=== PATIENT | female | born 1940 | race Caucasian/White ===

== ENCOUNTER 2020-12-25 13:28 | Outpatient (CLI) | payer MEDICARE | END 2020-12-25 13:29 | disposition home or self-care (01) | LOC: BICMRI 13:28 | PROVIDERS: ATTEND Family Medicine | DX: M47.26 Other spondylosis with radiculopathy, lumbar region (principal); M48.061 Spinal stenosis, lumbar region without neurogenic claudication | CPT/HCPCS: 72100; 72148 ==

== ENCOUNTER 2021-12-02 16:33 | Emergency (ER) | payer MEDICARE ==
[2021-12-02 19:39] LABS: #Eosinphils 0.1 thou/uL (0.0-0.7); #Lymphocytes 1.7 thou/uL (1.20-3.40); #Monocytes 0.5 thou/uL (0.11-0.59); #Neutrophils 3.9 thou/uL (1.40-6.50); %Basophils 0.7 % (0.0-1.0); %Eosinophils 1.1 % (0.0-10.0); %Lymphocytes 27.5 % (21.0-51.0); %Monocytes 8.1 % (0.0-10.0); %Neutrophils 62.6 % (42.0-75.0); Mean Corpuscular HGB CONC 32.8 g/dL (32.0-36.0); Mean Corpuscular Hemoglobin 29.6 pg (27.0-31.0); Mean Corpuscular Volume 90.2 fL (78.0-98.0); Mean Platelet Volume 7.9 fL (7.4-10.4); Platelet Count 189 thou/uL (130-400); RBC Distribution Width 12.1 % (11.5-14.5); Red Blood Cell (RBC) Count 4.05 mill/uL (4.20-5.40); White Blood Cell (WBC) Count 6.3 thou/uL (4.8-10.8)
[2021-12-02 20:03] LABS: ALT (SGPT) 17 U/L (8-55); AST (SGOT) 18 U/L (5-34); Albumin 4.2 g/dL (3.4-4.8); Alkaline Phosphatase 58 U/L (40-110); Anion Gap 11 mmol/L (10-20); BUN (Urea Nitrogen) 13 mg/dL (9.8-20.1); Bilirubin, Total 0.6 mg/dL (0.2-1.2); Calc. Creatinine Clearance 0 mL/min (70-130); Calcium 9.5 mg/dL (7.8-10.44); Carbon Dioxide 27 mmol/L (23-31); Chloride 105 mmol/L (98-107); Estimated GFR 72; Globulin 2.5 g/dL (2.4-3.5); Glucose 131 mg/dL (83-110); Potassium 4.3 mmol/L (3.5-5.1); Protein, Total 6.7 g/dL (5.8-8.1); Sodium 139 mmol/L (136-145)
== END 2021-12-02 21:50 | disposition home or self-care (01) ==
LOC: ERS 16:33
DX: R60.0 Localized edema (principal); I10 Essential (primary) hypertension; E78.5 Hyperlipidemia, unspecified; Z79.899 Other long term (current) drug therapy
CPT/HCPCS: 36415; 80053; 83880; 84484; 85025; 85379; 93970

== ENCOUNTER 2022-01-30 10:58 | Outpatient (CLI) | payer MEDICARE ==
[2022-01-30 13:16] LABS: Hemoglobin 12.8 g/dL (12.0-15.5); Mean Corpuscular HGB CONC 33.2 g/dL (32.0-36.0); Mean Corpuscular Hemoglobin 29.4 pg (27.0-33.0); Mean Corpuscular Volume 88.5 fl (81.6-98.3); Mean Platelet Volume 11.1 fl (7.4-10.4); Platelet Count 238 10x3/uL (150-450); RBC Distribution Width 13.2 % (11.5-14.5); Red Blood Cell (RBC) Count 4.35 10x6/uL (3.90-5.03); White Blood Cell (WBC) Count 6.9 10x3/uL (3.5-10.5)
[2022-01-30 13:44] LABS: INR-International Normal Ratio 0.9; PTT 28.6 sec (22.0-33.0)
== END 2022-01-30 10:59 | disposition home or self-care (01) ==
LOC: LABBT 10:58
PROVIDERS: ATTEND Neurological Surgery
DX: Z01.818 Encounter for other preprocedural examination (principal); M48.062 Spinal stenosis, lumbar region with neurogenic claudication
CPT/HCPCS: 85027; 85610; 85730; 93005; 93010

== ENCOUNTER 2022-02-04 05:45 | Day surgery (SDC) | payer MEDICARE ==
[2022-02-03 12:35] VITALS: BMI 28.3
[2022-02-04] MEDS ORDERED: Neomycin-Polymyxin 1 ML AMP ONE (06:10)
[2022-02-04] MEDS ORDERED: Bupivacaine HCl 0.5%/Epinephrine 1:200,000/PF 30 ml Vial ONE (06:10)
[2022-02-04] MEDS ORDERED: Thrombin 5000 UNITS/5 ML VIAL ONE ×2 (06:10→08:00)
[2022-02-04] MEDS ORDERED: Dexmedetomidine 200 MCG/2 ML VIAL ONE (06:26)
[2022-02-04] MEDS ORDERED: fentaNYL PF 100 MCG/2 ML SYRINGE ONE (06:26)
[2022-02-04] MEDS ORDERED: Sodium Chloride 0.9% 100 ML ONE ×2 (06:48→14:06)
[2022-02-04] MEDS ORDERED: CEFAZOLIN 2 GM VIAL ONE ×2 (06:48→14:06)
[2022-02-04] MEDS ORDERED: Ketorolac Tromethamine 30 MG/ML VIAL ONE (07:12)
[2022-02-04] MEDS ORDERED: Glycopyrrolate 0.2 MG/ML 5 ML SYRINGE ONE (07:12)
[2022-02-04] MEDS ORDERED: NEOSTIGMINE 3 MG/3 ML SYR 3 MG/3 ML SYRINGE ONE (07:12)
[2022-02-04] MEDS ORDERED: Dexamethasone 20 MG/5 ML VIAL ONE (07:12)
[2022-02-04] MEDS ORDERED: PROPOFOL 200 MG/20 ML VIAL ONE (07:12)
[2022-02-04] MEDS ORDERED: Rocuronium Bromide 10 MG/ML (10ML VIAL) ONE (07:12)
[2022-02-04] MEDS ORDERED: ePHEDrine 50 MG/ML VIAL ONE (07:12)
[2022-02-04] MEDS ORDERED: Ondansetron PF 4 MG/2 ML Vial ONE (07:12)
[2022-02-04] MEDS ORDERED: ePHEDrine Sulfate 50 MG/10 ML VIAL ONE (09:44)
[2022-02-04] MEDS ORDERED: Promethazine HCl 25 MG/ML VIAL IVPB PRN (10:41)
[2022-02-04] MEDS ORDERED: Ondansetron HCl/PF 4 MG/2 ML Vial IVP PRN (10:41)
[2022-02-04] MEDS ORDERED: Promethazine HCl 25 MG/ML VIAL IM PRN ×2 (10:41→11:15)
[2022-02-04] MEDS ORDERED: Morphine 4 MG/ML VIAL SLOW IVP PRN ×2 (11:05→11:15)
[2022-02-04] MEDS ORDERED: Promethazine HCl 25 MG/ML VIAL ONE ×2 (11:10→14:48)
[2022-02-04] MEDS ORDERED: Scopolamine 1.5 mg/72 hour Patch TD PRN (11:15)
[2022-02-04] MEDS ORDERED: Acetaminophen 325 MG TAB PO PRN (11:15)
[2022-02-04] MEDS ORDERED: Sodium Chloride 0.9% 1,000 ML IV SCH (11:15)
[2022-02-04] MEDS ORDERED: Cyclobenzaprine 10 MG TAB PO PRN (11:15)
[2022-02-04] MEDS ORDERED: Ondansetron PF 4 MG/2 ML Vial IM PRN (11:15)
[2022-02-04] MEDS ORDERED: Acetaminophen 650 MG Suppository PR PRN (11:15)
[2022-02-04] MEDS ORDERED: Promethazine 25 MG TAB PO PRN (11:15)
[2022-02-04] MEDS ORDERED: Fleet Enema 133 ML BOT PR PRN (11:15)
[2022-02-04] MEDS ORDERED: Promethazine HCl 12.5 MG SUPP PR PRN (11:15)
[2022-02-04] MEDS ORDERED: Bisacodyl 10 MG SUPP PR PRN (11:15)
[2022-02-04] MEDS ORDERED: HYDROcodone/Acetaminophen 7.5/325 mg Tablet PO PRN ×2 (11:15)
[2022-02-04] MEDS ORDERED: Morphine 4 MG/ML VIAL ONE (11:49)
[2022-02-04] MEDS ORDERED: HYDROcodone/Acetaminophen 5/325 mg Tablet ONE (14:19)
[2022-02-04] MEDS ORDERED: CEFAZOLIN 2 GM in Sodium Chloride 0.9% 100 ML IVPB SCH (15:00)
== END 2022-02-04 15:16 | disposition home or self-care (01) ==
LOC: SDC 05:45
PROVIDERS: ATTEND Neurological Surgery
PROC: 01NB0ZZ Release Lumbar Nerve, Open Approach (ICD-10-PCS; principal; 2022-02-04)
DX: M48.062 Spinal stenosis, lumbar region with neurogenic claudication (principal); I10 Essential (primary) hypertension; E78.5 Hyperlipidemia, unspecified; Z79.899 Other long term (current) drug therapy
CPT/HCPCS: J1100; J1885; J2270; J2405; J2550; J2704; J3370; J3490

== ENCOUNTER 2022-02-06 16:36 | Inpatient (IN) | payer MEDICARE ==
[2022-02-06 17:29] LABS: #Lymphocytes 1.3 thou/uL (1.20-3.40); #Monocytes 0.9 thou/uL (0.11-0.59); #Neutrophils 7.7 thou/uL (1.40-6.50); %Basophils 0.1 % (0.0-1.0); %Eosinophils 0.5 % (0.0-10.0); %Lymphocytes 13.2 % (21.0-51.0); %Monocytes 9.4 % (0.0-10.0); %Neutrophils 76.8 % (42.0-75.0); Hemoglobin 8.7 g/dL (12.0-16.0); Mean Corpuscular HGB CONC 32.9 g/dL (32.0-36.0); Mean Corpuscular Hemoglobin 30.5 pg (27.0-31.0); Mean Corpuscular Volume 92.6 fl (78.0-98.0); Mean Platelet Volume 8.5 fL (7.4-10.4); Platelet Count 156 10x3/uL (130-400); RBC Distribution Width 12.1 % (11.5-14.5); Red Blood Cell (RBC) Count 2.85 mill/uL (4.20-5.40)
[2022-02-06 17:49] LABS: ALT (SGPT) 15 U/L (8-55); AST (SGOT) 23 U/L (5-34); Albumin 3.6 g/dL (3.4-4.8); Alkaline Phosphatase 53 U/L (40-110); Anion Gap 12 mmol/L (10-20); BUN (Urea Nitrogen) 19 mg/dL (9.8-20.1); Bilirubin, Total 0.5 mg/dL (0.2-1.2); Calc. Creatinine Clearance 0 mL/min (70-130); Calcium 8.3 mg/dL (7.8-10.44); Carbon Dioxide 25 mmol/L (23-31); Chloride 101 mmol/L (98-107); Estimated GFR 58; Glucose 122 mg/dL (83-110); Potassium 4.7 mmol/L (3.5-5.1); Protein, Total 5.6 g/dL (5.8-8.1); Sodium 133 mmol/L (136-145)
[2022-02-06] MEDS ORDERED: Aspirin 325 MG TAB ONE (18:40)
[2022-02-06 21:25] LABS: Troponin I 0.032 ng/mL (< 0.028)
[2022-02-06] MEDS ORDERED: Acetaminophen 325 MG TAB PO PRN (21:48)
[2022-02-06] MEDS ORDERED: Acetaminophen 650 MG Suppository PR PRN (21:48)
[2022-02-07 01:42] LABS: Hemoglobin 8.7 g/dL (12.0-16.0)
[2022-02-07] MEDS: Sodium Chloride 0.9% 1,000 ML IV SCH ×2 (02:28→16:01)
[2022-02-07 05:53] LABS: #Eosinphils 0.1 thou/uL (0.0-0.7); #Lymphocytes 1.3 thou/uL (1.20-3.40); #Monocytes 0.7 thou/uL (0.11-0.59); #Neutrophils 5.5 thou/uL (1.40-6.50); %Basophils 0.2 % (0.0-1.0); %Eosinophils 0.9 % (0.0-10.0); %Lymphocytes 17.6 % (21.0-51.0); %Monocytes 9.4 % (0.0-10.0); %Neutrophils 71.9 % (42.0-75.0); Mean Corpuscular HGB CONC 34.7 g/dL (32.0-36.0); Mean Corpuscular Hemoglobin 32.1 pg (27.0-31.0); Mean Corpuscular Volume 92.5 fl (78.0-98.0); Mean Platelet Volume 8.4 fL (7.4-10.4); Platelet Count 151 10x3/uL (130-400); RBC Distribution Width 11.8 % (11.5-14.5); Red Blood Cell (RBC) Count 2.79 mill/uL (4.20-5.40); White Blood Cell (WBC) Count 7.7 10x3/uL (4.8-10.8)
[2022-02-07 06:13] LABS: Anion Gap 11 mmol/L (10-20); BUN (Urea Nitrogen) 13 mg/dL (9.8-20.1); Calc. Creatinine Clearance 79 mL/min (70-130); Calcium 8.3 mg/dL (7.8-10.44); Carbon Dioxide 24 mmol/L (23-31); Chloride 104 mmol/L (98-107); Estimated GFR 80; Glucose 102 mg/dL (83-110); Iron 27 ug/dL (50-170); Iron Binding Capacity, Total 228 mcg/dL (265-497); Potassium 4.2 mmol/L (3.5-5.1); Sodium 135 mmol/L (136-145)
[2022-02-07 06:20] LABS: Iron 27 ug/dL (50-170); Iron Binding Capacity, Total 226 mcg/dL (265-497)
[2022-02-07] MEDS: Enoxaparin Sodium 40 MG/0.4 ML SYRINGE SC SCH (08:34)
[2022-02-07] MEDS ORDERED: Acetaminophen/Codeine 30-300mg Tablet PO PRN (10:20)
[2022-02-07] MEDS: tiZANidine HCl 4 MG TAB PO PRN ×2 (10:39→21:34)
[2022-02-07] MEDS: Ondansetron ODT 4 MG TAB PO PRN ×2 (10:39→21:34)
[2022-02-07] MEDS ORDERED: Lisinopril 20 MG TAB PO SCH (11:00)
[2022-02-07] MEDS: Morphine 4 MG/ML VIAL SLOW IVP PRN ×2 (11:05→21:35)
[2022-02-07] MEDS: traMADol HCl 50 MG TAB PO PRN (15:57)
[2022-02-07] MEDS: Bisacodyl 5 MG TAB PO PRN (21:34)
[2022-02-07] MEDS: Ondansetron PF 4 MG/2 ML Vial IVP PRN (23:59)
[2022-02-08] MEDS: traMADol HCl 50 MG TAB PO PRN ×3 (00:37→22:29)
[2022-02-08 05:10] LABS: #Lymphocytes 1.7 thou/uL (1.20-3.40); #Monocytes 0.7 thou/uL (0.11-0.59); %Basophils 0.1 % (0.0-1.0); %Eosinophils 0.5 % (0.0-10.0); %Monocytes 7.3 % (0.0-10.0); %Neutrophils 74.1 % (42.0-75.0); Hemoglobin 8.1 g/dL (12.0-16.0); Mean Corpuscular HGB CONC 32.6 g/dL (32.0-36.0); Mean Corpuscular Hemoglobin 29.9 pg (27.0-31.0); Mean Corpuscular Volume 91.6 fl (78.0-98.0); Mean Platelet Volume 8.7 fL (7.4-10.4); Platelet Count 158 10x3/uL (130-400); RBC Distribution Width 11.7 % (11.5-14.5); Red Blood Cell (RBC) Count 2.72 mill/uL (4.20-5.40); White Blood Cell (WBC) Count 9.4 10x3/uL (4.8-10.8)
[2022-02-08 05:28] LABS: Anion Gap 10 mmol/L (10-20); BUN (Urea Nitrogen) 11 mg/dL (9.8-20.1); Calc. Creatinine Clearance 82 mL/min (70-130); Calcium 8.4 mg/dL (7.8-10.44); Carbon Dioxide 24 mmol/L (23-31); Chloride 104 mmol/L (98-107); Estimated GFR 84; Glucose 112 mg/dL (83-110); Potassium 4.7 mmol/L (3.5-5.1); Sodium 133 mmol/L (136-145)
[2022-02-08] MEDS: Bisacodyl 5 MG TAB PO PRN ×2 (08:50→22:30)
[2022-02-08] MEDS: Ondansetron PF 4 MG/2 ML Vial IVP PRN ×2 (08:50→17:08)
[2022-02-08] MEDS ORDERED: Lisinopril 20 MG TAB PO SCH (09:00)
[2022-02-08] MEDS: Enoxaparin Sodium 40 MG/0.4 ML SYRINGE SC SCH (09:34)
[2022-02-08] MEDS: Lisinopril 20 MG TAB PO SCH (09:34)
[2022-02-08] MEDS: Amlodipine 5 MG TAB PO SCH (09:34)
[2022-02-08] MEDS: Atorvastatin Calcium 10 MG TAB PO SCH (09:35)
[2022-02-08] MEDS: Cholecalciferol 1,000 UNITS (25 MCG) TAB PO SCH (09:35)
[2022-02-09 05:38] LABS: #Lymphocytes 1.1 thou/uL (1.20-3.40); #Monocytes 0.8 thou/uL (0.11-0.59); #Neutrophils 8.3 thou/uL (1.40-6.50); %Basophils 0.2 % (0.0-1.0); %Eosinophils 0.3 % (0.0-10.0); %Lymphocytes 11.2 % (21.0-51.0); %Monocytes 7.8 % (0.0-10.0); %Neutrophils 80.5 % (42.0-75.0); Hemoglobin 10.1 g/dL (12.0-16.0); Mean Corpuscular HGB CONC 32.5 g/dL (32.0-36.0); Mean Corpuscular Hemoglobin 29.7 pg (27.0-31.0); Mean Corpuscular Volume 91.6 fl (78.0-98.0); Mean Platelet Volume 8.6 fL (7.4-10.4); Platelet Count 191 10x3/uL (130-400); RBC Distribution Width 11.7 % (11.5-14.5); Red Blood Cell (RBC) Count 3.39 mill/uL (4.20-5.40); White Blood Cell (WBC) Count 10.3 10x3/uL (4.8-10.8)
[2022-02-09 05:54] LABS: Anion Gap 13 mmol/L (10-20); BUN (Urea Nitrogen) 11 mg/dL (9.8-20.1); Calc. Creatinine Clearance 84 mL/min (70-130); Calcium 8.8 mg/dL (7.8-10.44); Carbon Dioxide 24 mmol/L (23-31); Chloride 99 mmol/L (98-107); Estimated GFR 86; Glucose 106 mg/dL (83-110); Potassium 4.4 mmol/L (3.5-5.1); Sodium 132 mmol/L (136-145)
[2022-02-09 06:09] VITALS: BMI 28.6
[2022-02-09] MEDS: Amlodipine 5 MG TAB PO SCH (08:40)
[2022-02-09] MEDS: Atorvastatin Calcium 10 MG TAB PO SCH (08:41)
[2022-02-09] MEDS: Cholecalciferol 1,000 UNITS (25 MCG) TAB PO SCH (08:41)
[2022-02-09] MEDS: Lisinopril 20 MG TAB PO SCH (08:45)
[2022-02-09 12:37] VITALS: BP 174/75; TEMP 97.7
== END 2022-02-09 13:09 | disposition home or self-care (01) | DRG 811 ==
LOC: ERS 16:36 → 2SW 19:15 → OBSVTOIN 02-09 09:25
PROVIDERS: ADMIT Student in an Organized Health Care Education/Training Program; ATTEND Family Medicine
PROC: 30233N1 Transfusion of Nonautologous Red Blood Cells into Peripheral Vein, Percutaneous Approach (ICD-10-PCS; principal; 2022-02-08)
DX: D62 Acute posthemorrhagic anemia (principal); I21.A1 Myocardial infarction type 2; N17.9 Acute kidney failure, unspecified; E87.1 Hypo-osmolality and hyponatremia; E86.0 Dehydration; I10 Essential (primary) hypertension; M54.9 Dorsalgia, unspecified; Z20.822 Contact with and (suspected) exposure to COVID-19; G89.29 Other chronic pain; E78.5 Hyperlipidemia, unspecified; Z79.899 Other long term (current) drug therapy; Z90.09 Acquired absence of other part of head and neck; Z98.51 Tubal ligation status; Z90.49 Acquired absence of other specified parts of digestive tract
CPT/HCPCS: 36415; 36430; 70450; 71045; 80048; 80053; 82553; 82728; 83540; 83550; 83880; 84484; 85025; 86850; 86900; 86901; 93005; 93306; 96372; 96374; 96375; 96376; G0378; J1650; J2270; J2405; J7050; P9016; Q0162; U0003; U0005